=== PATIENT | male | born 1940 | race Caucasian/White ===

== ENCOUNTER 2017-11-07 11:03 | Inpatient (IN) | payer OTHER ==
--- NOTE | 2017-11-07 12:18 | DI ---
EXAM: Chest one view, frontal view only. HISTORY: Chest pain. COMPARISON: 12/22/2015. FINDINGS: Post CABG changes noted. Aortic atherosclerotic calcifications are present The heart size is normal. There is no pulmonary vascular congestion. The lungs are clear. No pleural effusion or pneumothorax is seen. No acute osseous abnormality is identified. Old right rib fractures seen. S grzegorz the prior study, there has been no significant interval change. IMPRESSION: No acute cardiopulmonary process.
--- NOTE | 2017-11-07 13:00 | ED.PDOC ---
General ED Provider: Dr. ALVARO SINGH Chief Complaint: Syncope Stated Complaint: syncope Time Seen by Physician: 11:10 Mode of Arrival: Walk-In Information Source: Patient Exam Limitations: No limitations Primary Care Provider: KEESHA REAL Nursing and Triage Documentation Reviewed and Agree: Yes Does patient meet sepsis criteria?: Yes If yes, has appropriate treatment been initiated?: No System Inflammatory Response Syndrome: Not Applicable Sepsis Protocol: For patient's 13 years and over: Temp is 96.8 and below OR 101 and greater Pulse >90 BPM Resp >20/minute Acutely Altered Mental Status Are patient's symptoms suggestive of a new infection, such as: -Pneumonia -Skin, Soft Tissue -Endocarditis -UTI -Bone, Joint Infection -Implantable Device -Acute Abdominal Infection -Wound Infection -Meningitis -Blood Stream Catheter Infection -Unknown Neurological Complaint Exam - Syncope/Near Syncope Complaint/Exam Onset/Duration: today and last week Symptoms Are: Resolved Episodes Lasting: Seconds Number of Episodes: 1 Frequency of Episodes: 1 Episodes Witnessed: Yes Loss of Consciousness: No Associated Head Trauma: No Activity at Onset: At rest Aggravating: None Alleviating: Reports: Spontaneous resolution Associated Signs and Symptoms: Denies: Pain, Decreased oral intake, Vomiting, Diarrhea, GI blood loss, Short of air, Chest pain, Palpitations, Diaphoresis, Lightheadedness, Dizziness, Weakness, AMS, Numbness, Headache, Seizure, Remote head trauma, Recent head trauma Related History: Similar episode GI Bleed Risk Factors: Reports: None Dysrhythmia Risk Factors: Reports: >45 years old Related Surgical History: Reports: None JVD Present: No Carotid Bruit Present: No Rectal Heme Positive: No Glascow Coma Scale (see protocol): 15 Nystagmus Present: No Gag Reflex Present: Yes Meningeal Signs Positive: No Focal Weakness: Present: None Focal Sensory Loss: Present: None Gait: Normal [id number]: Normal Findings Romberg Test Positive: No Babinski Sign: Negative Right, Negative Left Heel to Toe Normal: No Differential Diagnoses: CAD, Dysrhythmia, Hypoglycemia, Hypovolemia, Metabolic Reaction, Medication Reaction, Vasovagal Episode Quality Indicators for Cardiac Chest Pain: EKG in 10min. Quality Indicator For Non-Traumatic Chest Pain/Syncope: EKG Performed Quality Indicators for AMI: EKG in 10min. Review of Systems - Review Of Systems Constitutional: Reports: No symptoms Eyes: Reports: No symptoms Ears, Nose, Mouth, Throat: Reports: No symptoms Respiratory: Reports: No symptoms Cardiac: Reports: Syncope GI: Reports: No symptoms : Reports: No symptoms Musculoskeletal: Reports: No symptoms Skin: Reports: No symptoms Neurological: Reports: No symptoms Endocrine: Reports: No symptoms Hematologic/Lymphatic: Reports: No symptoms All Other Systems: Reviewed and Negative Past Medical History - Past Medical History Previously Healthy: Yes Endocrine: Reports: Dyslipidemia Cardiovascular: Reports: Hypertension Respiratory: Reports: None Hematological: Reports: None Gastrointestinal: Reports: None Genitourinary: Reports: None Neuro/Psych: Reports: None Musculoskeletal: Reports: None Cancer: Reports: None - Surgical History General Surgical History: Reports: None - Family History Family History: Reports: None - Social History Smoking Status: Current some day smoker, Light tobacco smoker Hx Substance Use: No Alcohol Screening: Occasionally Physical Exam - Physical Exam Appearance: Well-appearing, No pain distress, Well-nourished Eyes: SHON, EOMI, Conjunctiva clear ENT: Ears normal, Nose normal, Oropharynx normal Respiratory: Airway patent, Breath sounds clear, Breath sounds equal, Respirations nonlabored Cardiovascular: RRR, Pulses normal, No rub, No murmur GI/: Soft, Nontender, No masses, Bowel sounds normal, No Organomegaly Musculoskeletal: Normal strength, ROM intact, No edema, No calf tenderness Skin: Warm, Dry, Normal color Neurological: Sensation intact, Motor intact, Reflexes intact, Cranial nerves intact, Alert, Oriented Psychiatric: Affect appropriate, Mood appropriate Interpretation - Radiology Interpretation Radiology Interpretation By: Radiologist Radiology Results: No acute changes - 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 Rate: Salvatore Rhythm: Sinus - EKG Interpretation Rate: Salvatore Rhythm: Sinus Re-Evaluation - Re-Evaluation Time of Re-Evaluation: 12:00 Status: Improved Vital Signs Stable: Yes Pain Level: 0 Appearance: NAD Lungs: Clear Skin: Warm and Dry Neuro: Alert and Oriented X3 CV: RRR - Re-Evaluation Time of Re-Evaluation: 13:00 Status: Improved Vital Signs Stable: Yes Pain Level: 0 Appearance: NAD Skin: Warm and Dry Neuro: Alert and Oriented X3 CV: RRR Physician Notification - Case Discussed Physician Notified: pmd Time of Notification: 13:01 Admit To: Inpatient Critical Care Note - Critical Care Note Total Time (mins): 0 Course - Course Hematology/Chemistry: 11/07/17 11:30 11/07/17 11:30 Orders, Labs, Meds: Lab Review 11/07/17 11/07/17 11/07/17 11:30 11:30 11:30 WBC 5.69 RBC 4.79 Hgb 15.5 Hct 45.3 MCV 94.6 H MCH 32.4 H MCHC 34.2 RDW Coeff of Seymour 13.0 Plt Count 178 Immature Gran % (Auto) 0.2 Neut % (Auto) 63.1 Lymph % (Auto) 23.0 Sandoval % (Auto) 10.4 H Eos % (Auto) 2.6 Baso % (Auto) 0.7 Immature Gran # (Auto) 0.0 Neut # (Auto) 3.6 Lymph # (Auto) 1.3 Sandoval # (Auto) 0.6 Eos # (Auto) 0.2 Baso # (Auto) 0.0 PT 10.1 INR 1.01 APTT 23.7 L Sodium 138 Potassium 3.9 Chloride 105 Carbon Dioxide 25 Anion Gap 11.9 BUN 9 Creatinine 0.87 Estimated GFR (MDRD) 85.00 BUN/Creatinine Ratio 10.34 Glucose 99 Calcium 8.7 Total Bilirubin 1.3 H AST 16 ALT 12 Alkaline Phosphatase 74 Total Creatine Kinase 72 Troponin I < 0.0100 Total Protein 6.3 Albumin 3.4 Globulin 2.9 Albumin/Globulin Ratio 1.17 Orders Category Date Time Status ECHOCARDIOGRAM COLOR FLOW-(ED) Stat CARDIO 11/07/17 12:50 Ordered EKG-(ED ONLY) Stat CARDIO 11/07/17 11:25 Completed NPO REMINDER: IMAGING ONCE CARE 11/07/17 12:49 Active NPO REMINDER: IMAGING ONCE CARE 11/07/17 12:56 Ordered Neuro Check [NEUROLOGICAL CHECKS] Q4HR CARE 11/07/17 12:50 Active ED IV/MEDIPORT/POWERPORT .ONCE EMERGENCY 11/07/17 11:25 Active CBC W/ AUTO DIFF Stat LAB 11/07/17 11:30 Completed COMPREHENSIVE METABOLIC PANEL Stat LAB 11/07/17 11:30 Completed CREATINE KINASE Stat LAB 11/07/17 11:30 Completed FREE T4 (FREE THYROXINE) Stat LAB 11/07/17 12:49 Ordered PARTIAL THROMBOPLASTIN TIME Stat LAB 11/07/17 11:30 Completed PT WITH INR Stat LAB 11/07/17 11:30 Completed THYROID STIMULATING HORMONE Stat LAB 11/07/17 12:49 Ordered TROPONIN I Stat LAB 11/07/17 11:30 Completed 0.9 % Sodium Chloride [Saline Flush] MEDS 11/07/17 11:24 Active 1 syr IVF PRN PRN Amlodipine Besylate [Norvasc] MEDS 11/08/17 09:00 Ordered 5 mg PO DAILY Clopidogrel Bisulfate [Plavix] MEDS 11/08/17 09:00 Ordered 75 mg PO DAILY Lisinopril [Lisinopril] MEDS 11/07/17 21:00 Ordered 20 mg PO BID Metoprolol Succinate [Toprol Xl] MEDS 11/08/17 09:00 Ordered 50 mg PO DAILY Montelukast Sodium [Singulair] MEDS 11/08/17 09:00 Ordered 10 mg PO DAILY Pravastatin Sodium [Pravachol] MEDS 11/08/17 09:00 Ordered 40 mg PO DAILY CHEST, 1V AP ONLY Stat RADS 11/07/17 11:[address] HEAD W/CONTRAST Stat RADS 11/07/17 12:[address] HEAD W/WO CONTRAST Stat RADS 11/07/17 12:56 Ordered ULTRASOUND DOPPLER CAROTID [U/S DOPPLER CAROTID] Stat RADS 11/07/17 12:49 Ordered Medications Generic Name Dose Route Start Last Admin Trade Name Freq PRN Reason Stop Dose Admin Amlodipine Besylate 5 mg 11/08/17 09:00 Norvasc PO DAILY MARY BETH Clopidogrel Bisulfate 75 mg 11/08/17 09:00 Plavix PO DAILY MARY BETH Metoprolol Succinate 50 mg 11/08/17 09:00 Toprol Xl PO DAILY MARY BETH Montelukast Sodium 10 mg 11/08/17 09:00 Singulair PO DAILY MARY BETH Non-Formulary Medication 20 mg 11/07/17 21:00 Lisinopril [Lisinopril] PO BID MARY BETH Pravastatin Sodium 40 mg 11/08/17 09:00 Pravachol PO DAILY MARY BETH Sodium Chloride 1 syr 11/07/17 11:24 Saline Flush IVF PRN PRN To flush IV Vital Signs: Temp Pulse Resp BP Pulse Ox 11/07/17 11:06 97.4 F L 65 12 185/79 H 95 Departure - Departure Time of Disposition: 13:01 Disposition: HOME SELF-CARE Discharge Problem: Syncope Instructions: Syncope (ED) Condition: Good Pt referred to PMD for follow-up: Yes IPMP verified?: No Additional Instructions: Please call your Family Physician as soon as possible to schedule a follow-up appointment. Allergies/Adverse Reactions: Allergies No Known Allergies Allergy (Unverified 11/07/17 11:05) Home Medications: Ambulatory Orders Amlodipine Besylate 5 mg PO DAILY 11/07/17 Clopidogrel Bisulfate [Clopidogrel] 75 mg PO DAILY 11/07/17 Lisinopril 20 mg PO BID 11/07/17 Metoprolol Succinate [Toprol Xl] 50 mg PO DAILY 11/07/17 Montelukast Sodium 10 mg PO DAILY 11/07/17 Pravastatin Sodium [Pravachol] 40 mg PO DAILY 11/07/17 Disposition Discussed With: Patient
--- NOTE | 2017-11-07 13:51 | CT ---
EXAM: CT head with and without contrast HISTORY: Syncope COMPARISON: None TECHNIQUE: CT head performed with and without contrast FINDINGS: There is no mass effect, midline shift, or intracranial hemmorhage. Dougherty white differenti ation is preserved. There is no extra-axial collection. The ventricles, sulci, and basal cisterns a re patent and symmetric. There is chronic ischemic disease of the white matter and cerebral volume l oss. There is no depressed calvarial fracture. The mastoid air cells are clear. The visualized para nasal sinuses are clear. There are intracranial atherosclerotic calcifications. No abnormal area of enhancement. IMPRESSION: 1. No acute intracranial abnormality. No abnormal area of enhancement. 2. Chronic ischemic disease of the white matter and cerebral volume loss.
--- NOTE | 2017-11-07 14:18 | US ---
EXAM: Carotid ultrasound HISTORY: Syncope COMPARISON: None TECHNIQUE: Carotid ultrasound was performed using ortega scale, color, and Doppler imaging was perform ed. FINDINGS: Right carotid: There is atherosclerotic plaque in the bulb/internal carotid artery with visual estim ate of narrowing greater than 50%. Peak systolic velocity measurement in the right internal carotid artery is 1.2 meters per second. End-diastolic velocity measurement in the right internal carotid ar an is 0.2 meters per second. Right internal to common carotid artery peak systolic velocity ratio is 1.8. Flow in the right vertebral artery is antegrade. Left carotid: There is atherosclerotic plaque in the bulb/internal carotid artery with visual estima te of narrowing greater than 50%. Peak systolic velocity measurement in the left internal carotid ar an is 0.8 meters per second. End-diastolic velocity measurement in the left internal carotid arter y is 0.2 meters per second. Left internal to common carotid artery peak systolic velocity ratio david ures 1.2. Left vertebral artery not visualized. IMPRESSION: 1. Right internal carotid: Indeterminate degree of stenosis. Peak systolic velocity corresponds with mild (less than 50%) stenosis; however, visual estimate of narrowing is greater than 50% and may be moderate or severe 2. Left internal carotid: Indeterminate degree of stenosis. Peak systolic velocity corresponds with mild (less than 50%) stenosis; however, visual estimate of narrowing is greater than 50% and may be m oderate or severe 3. Antegrade flow right vertebral artery. Left vertebral artery not visualized. 4. Findings can be correlate with CT angiography neck
[2017-11-07] MEDS ORDERED: VASOTEC IV IVP PRN (14:30)
[2017-11-07] MEDS ORDERED: VASOTEC IV IVP STA (14:30)
[2017-11-07] MEDS ORDERED: ASPIRIN CHEWABLE PO STA (14:35)
[2017-11-07 15:22] VITALS: BMI 26.5
[2017-11-07] MEDS: ZESTRIL PO SCH (20:19)
[2017-11-07] MEDS ORDERED: NON-FORMULARY MEDICATION (Lisinopril [Lisinopril] 20 MG) PO SCH (21:00)
[2017-11-08] MEDS ORDERED: TOPROL XL PO SCH (08:00)
[2017-11-08] MEDS: ASPIRIN CHEWABLE PO SCH (08:26)
[2017-11-08] MEDS: BYSTOLIC PO SCH (08:26)
[2017-11-08] MEDS: PRAVACHOL PO SCH (08:27)
[2017-11-08] MEDS: ZESTRIL PO SCH ×2 (08:27→20:15)
[2017-11-08] MEDS: NORVASC PO SCH (08:27)
[2017-11-08] MEDS: SINGULAIR PO SCH (08:27)
[2017-11-08] MEDS ORDERED: PLAVIX PO SCH (09:00)
--- NOTE | 2017-11-08 09:03 | PN ---
DATE OF SERVICE: 11/07/17 SUBJECTIVE: 77-year-old white male hospitalized with history of passing out. The patient had recent episode while sitting and he didn't know what happened. The was by his side. Suddenly after that he woke up. The patient denies having any vomiting. No seizure type of activity was noted by the patient's . The patient says that he felt dizzy, light-headed before then. The patient has similar type of spells for the past 4 to 6 months, happens once a month, has never hurt himself or fallen. The patient denies any exertional chest discomfort. No PND, no orthopnea or palpitations. PHYSICAL EXAMINATION: HEENT: Head normocephalic, atraumatic. Eyes: Extraocular muscles are intact. Pupils are equal, round and reactive to light and accommodation. Ears: No lesions. Nose appeared normal. Throat: No exudate or erythema. NECK: Supple. No JVD, no carotid bruit. No lymphadenopathy or thyromegaly. LUNGS: Decreased breath sounds but clear. Clear to auscultation. Percussion note normal. Chest symmetrical. HEART: S1, S2, no S3. No murmurs. No cyanosis or clubbing. No ascites. Pulses: Dorsalis pedis and posterior tibial pulses +1 to +2 both sides. ABDOMEN: Soft. Nontender. Bowel sounds active. No CVA tenderness. No mass felt. EXTREMITIES: No edema. Full range of motion of all extremities, equal. NEUROLOGIC: Deep tendon reflexes normal. No focal deficit. Cranial nerves II through XII are grossly intact. No headache, no double vision or headache. SKIN: Not dry. Intact. Turgor - normal. LYMPHATIC: No palpable lymph nodes/no lymphedema. MUSCULOSKELETAL: Normal joints with no swelling. Muscle tone is normal. LABS: Normal. CT scan showed volume loss with small vessel disease. Carotid scan showed right carotid artery maybe 50 to 70%, left less than 50. Will do CT angiogram. ASSESSMENT: 1. SYNCOPAL EPISODE, ETIOLOGY UNKNOWN 2. HEAVY SMOKING WITH COPD 3. DYSLIPIDEMIA 4. HYPERTENSION, WHICH SEEMS TO BE OUT OF CONTROL PLAN: 1. Telemetry 2. Carotid scan already done 3. CT scan of the head already done 4. Start coated aspirin 5. Will give IV Vasotec 1.25 mg q.8 for BP systolic more than 160 6. Will do echocardiogram 7. Counseling for smoking done 8. ASHD discussed with the patient 9. Will discontinue Metoprolol and put patient on Bystolic 5 mg daily which doesn't have much bradycardia type of effect. The patient's heart rate is in the 40s. Will try to correct that. Will watch him for pauses. CONDITION: Stable. TIME SPENT: More than 30 minutes. Plan and coordination of the patient's care discussed in the presence of nurse. JALEN
--- NOTE | 2017-11-08 16:46 | CT ---
EXAM: CTA of the neck was performed with contrast TECHNIQUE: Helical axial CTA of the neck was performed with contrast with multiplanar reconstruction s and separate work station 3-D renderings. COMPARISON: Carotid duplex from 1 day earlier and head CT from 1 day earlier HISTORY: Concern for carotid stenosis with history of syncope FINDINGS: There is no acute soft tissue abnormality. There are no neck masses or pathologic lymph nod es. The thyroid gland is unremarkable. There is advanced emphysematous change in the lung apices. The re are no acute osseous abnormalities. There is moderate degenerative change in the cervical spine. Aorta: There is advanced calcific atherosclerosis of the aorta with no evidence for dissection or an eurysm. The bilateral subclavian arteries and brachial cephalic artery are widely patent. Right carotid artery: There is moderate calcific atherosclerosis of the proximal right common caroti d artery which does not appear to be hemodynamically significant. There is advanced calcific atheros clerosis at the bifurcation.. This results in about 50% luminal diameter narrowing of the proximal r ight internal carotid artery. Carotid artery in the neck more distally is widely patent. There is a small focus of calcific atherosclerosis seen just below the skull base. Right vertebral artery: There is mild to moderate calcific atherosclerosis at the origin of the righ t vertebral artery. The course of the right vertebral artery in the neck is normal with no focal sten osis or dissection or aneurysm. Left carotid artery: The origin of the left common carotid artery off of the aortic arch is widely p atent. There is non stenotic calcific atherosclerosis of the proximal left common carotid artery. Th ere is advanced calcific atherosclerosis seen involving the left carotid bifurcation. This results i n about 30-40% luminal diameter narrowing of the left internal carotid artery proximally. More dista lly the left internal carotid artery is widely patent. Left vertebral artery: The origin of the left vertebral artery off of the left subclavian artery is widely patent. The course of the left vertebral artery in the neck is unremarkable with no focal kaleb nosis or aneurysm or dissection. The left vertebral artery is very diminutive congenitally. Visualized intracranial circulation: There are bilateral large posterior communicating arteries whic h result in a very small vertebral basilar system. Middle cerebral and anterior cerebral arteries an d the vertebral basilar system appear to be widely patent. No aneurysms are identified. There is mod erate calcific atherosclerosis of the bilateral carotid siphons a bit more on the left. IMPRESSION: 1. Extensive calcific atherosclerosis of the bilateral carotid bifurcations as described resulting i n about 50% luminal diameter narrowing of the right internal carotid artery proximally and 30 40% lum inal diameter narrowing on the left. 2. Widely patent bilateral vertebral arteries with exception of some mild to moderate narrowing of t he origin of the right vertebral artery due to calcific atherosclerosis. 3. Diminutive vertebral basilar system as above which is a risk factor for vertebral basilar insuffi ciency. 4. Other atherosclerotic findings as described. 5. Emphysema.
[2017-11-09] MEDS: NORVASC PO SCH (08:34)
[2017-11-09] MEDS: PRAVACHOL PO SCH (08:34)
[2017-11-09] MEDS: SINGULAIR PO SCH (08:34)
[2017-11-09] MEDS: BYSTOLIC PO SCH (08:34)
[2017-11-09] MEDS: ASPIRIN CHEWABLE PO SCH (08:34)
[2017-11-09] MEDS: ZESTRIL PO SCH (08:34)
--- NOTE | 2017-11-09 08:46 | HP ---
DATE OF SERVICE: 11/08/17 REASON FOR HOSPITALIZATION/HISTORY OF PRESENT ILLNESS: 77 year old male who was brought in his family members after an episode of syncope. He stated that it lasted for a few seconds and then resolved. He stated that he had an episode last week and he denies any vomiting, diarrhea, dizziness. PAST MEDICAL HISTORY: COPD Coronary artery disease Hypertension History of bladder cancer GERD Dyslipidemia Osteoarthritis Severe left hip OA PAST SURGICAL HISTORY: CABG in 1997 REVIEW OF SYSTEMS: CONSTITUTIONAL: No night sweats. No fatigue, malaise, lethargy. No fever or chills. HEENT: Eyes: No visual changes. No eye pain. No eye discharge. ENT: No runny nose. No epistaxis. No sinus pain. No sore throat. No odynophagia. No ear pain. No congestion. RESPIRATORY: No cough, no congestion. No hemoptysis. No shortness of breath. CARDIOVASCULAR: No angina symptoms. No CHF symptoms. No atypical chest pain for CAD. No palpitations. No PND. No orthopnea. GASTROINTESTINAL: No abdominal pain. No nausea or vomiting. No diarrhea or constipation. No hematemesis. No hematochezia. GENITOURINARY: No urgency. No frequency. No dysuria. No hematuria. No obstructive symptoms. No discharge. No pain. No significant abnormal bleeding. MUSCULOSKELETAL: No musculoskeletal pain. No joint swelling. No arthritis. NEUROLOGICAL: No headache. No neck pain. Syncope. No seizures. No dizziness. PSYCHIATRIC: Not anxious. No depression. No suicidal thoughts. No homicidal thoughts. SKIN: No rash. No lesions. No wounds. ENDOCRINE: No unexplained weight loss. No weight gain. HEMATOLOGIC/LYMPHATIC: No anemia. No purpura. No petechiae. No prolonged or excessive bleeding. No palpable lymph nodes. PERSONAL/FAMILY/SOCIAL HISTORY: The patient is a daily smoker, no alcohol or illicit drug use. He is . MEDICATIONS: Montelukast sodium 10mg PO 1700 Toprol XL 50mg PO daily Lisinopril 20mg PO twice a day Amlodipine 5mg PO daily Pravachol 40mg PO 1700 ALLERGIES: No known allergies PHYSICAL EXAMINATION: VITAL SIGNS: Temperature 97.4, heart rate 60, respiratory 18, blood pressure 140/65 and pulse ox 97%. GENERAL: The patient is alert and oriented times three. HEENT: Head normocephalic, atraumatic. Eyes: Extraocular muscles are intact. Pupils are equal, round and reactive to light and accommodation. Ears: No lesions. Nose appeared normal. Throat: No exudate or erythema. NECK: Supple. No JVD, no carotid bruit. No lymphadenopathy or thyromegaly. LUNGS: Clear to auscultation. Percussion note normal. Chest symmetrical. HEART: S1, S2, no S3. No murmurs. No cyanosis or clubbing. No ascites. Pulses: Dorsalis pedis and posterior tibial pulses +1 to +2 bilaterally. ABDOMEN: Soft. Nontender. Bowel sounds active. No CVA tenderness. No mass felt. EXTREMITIES: No edema. Full range of motion of all extremities, equal. NEUROLOGIC: No focal deficit. Cranial nerves II through XII are grossly intact. No headache, no double vision or headache. SKIN: Not dry. Intact. Turgor - normal. LYMPHATIC: No palpable lymph nodes/no lymphedema. MUSCULOSKELETAL: Normal joints with no swelling. Muscle tone is normal. LABS: WBC 5.69, hgb 15.5, hct 45.3, plt count 178, sodium 138, potassium 3.9, BUN 9, creatinine 0.87, glucose 99, PT 10, INR 1.07, AST 12, ALT 74, Troponin less than 0.01, total CK 72, total protein 16.3. CT of the head without showed chronic ischemic disease of the white matter cerebral volume loss however no acute abnormalities. Chest x-ray shows no acute cardio pulmonary process. TSH 1.125, Free T4 1.06, Carotid ultrasound showed narrowing greater than 50% of the right carotid, left carotid is greater than 50%. ASSESSMENT: 1. Syncopal episode 2. Hypertension 3. Coronary artery disease 4. History of HI 5. Smoker PLAN: 1. We will admit 2. Routine telemetry orders 3. CBC and CMP daily 4. CTA of the head and neck today 11/08/17 5. Continue all home medications 6. We will order an echo 7. Neurochecks Q 4 hours Will follow him closely TIME SPENT: More than 70 minutes. [facility]LAND[facility]
[2017-11-09 09:51] VITALS: BP 127/64; TEMP 97.6
--- NOTE | 2017-11-09 10:59 | ECHO2D ---
Date of Exam: 11/08/17 Ordering Physician: DR. KEESHA REAL Room #: 110 Reason for Echo: SYNCOPE M-Mode Normal Adult Results LV Dimensions Normal Adult Results AoV Opening excursions >1.6 >1.6 LVEDD-base- 3.5-5.8 5.4 Ao root dimensions 2.0-3.7 3.6 LVESD-base- 3.1-4.6 L. Atrium dimensions 1.9-3.8 4.9 Post. Wall thickness 0.8-1.1 1.4 IV septum (thickness) 0.7-1.2 1.1 Post. Wall excursion 0.72-1.3 NORMAL Septal motion 0.4 Systolic motion R. Ventricular cavity 1.5-2.0 NORMAL LVEF 60% 48% Paradoxical septal wall motion NORMAL 2-D : SEPTUM THINNED OUT WITH SOME PART SHOWING SYSTOLIC THICKENING--NORMAL VALVES, ENLARGED LEFT ATRIAL CAVITY--NO THROMBUS, NO EFFUSION M-MODE: MV: NORMAL AV: NORMAL TV: NORMAL PV: CHAMBER SIZE: ENLARGED LEFT ATRIAL CAVITY WALL MOTION: HYPOKINETIC SEPTUM PERICARDIUM: NORMAL INTERPRETATION: 1. HYPOKINETIC SEPTUM WITH EJECTION FRACTION 48% 2. LEFT VENTRICULAR HYPERTROPHY 3. NORMAL VALVES MTDD
--- NOTE | 2017-11-09 12:06 | CM.DICTOOL ---
ADMISSION: 11/07/17 13:05 DISCHARGE: NOVEMBER 09, 2017 DATE OF SERVICE: 11/09/17 FINAL DIAGNOSIS SYNCOPE HYPERTENSION HISTORY OF ID CAD COPD DYSLIPIDEMIA OSTEOARTHRITIS BLADDER CANCER SMOKER CABG, 4 VESSEL CATARACT SURGERY LAST VITALS Temp Pulse Resp BP Pulse Ox 98.0 F 51 L 18 135/72 97 11/09/17 05:39 11/09/17 05:39 11/09/17 05:39 11/09/17 05:39 11/09/17 05:39 TAKE THESE MEDICATIONS AT HOME Amlodipine Besylate (Norvasc) 5 mg PO DAILY [facility] Last Admin: 11/09/17 08:34 Dose: 5 mg Aspirin (Aspirin Chewable) 81 mg PO DAILYWM [facility] Last Admin: 11/09/17 08:34 Dose: 81 mg Lisinopril (Zestril) 20 mg PO BID [facility] Last Admin: 11/09/17 08:34 Dose: 20 mg Montelukast Sodium (Singulair) 10 mg PO DAILY [facility] Last Admin: 11/09/17 08:34 Dose: 10 mg Nebivolol (Bystolic) 5 mg PO DAILY [facility] Last Admin: 11/09/17 08:34 Dose: 5 mg Pravastatin Sodium (Pravachol) 40 mg PO DAILY [facility] Last Admin: 11/09/17 08:34 Dose: 40 mg ALLERGIES No Known Allergies Allergy (Unverified 11/07/17 11:05) DISCONTINUED MEDICATIONS METOPROLOL SUCCINATE (TOPROL XL) NEW PRESCRIPTIONS: BYSTOLIC 5 MG DAILY SMOKING: SMOKING DISCOURAGED DISEASE SPECIFIC EDUCATION: SYNCOPE HYPERTENSION MEDICATION CHANGE LAB REVIEW: 11/09/17 04:45 11/09/17 04:45 11/09/17 04:45: Sodium 141, Potassium 4.4, Chloride 103, Carbon Dioxide 31, Anion Gap 11.4, BUN 9, Creatinine 0.93, Estimated GFR (MDRD) 78.00, BUN/ Creatinine Ratio 9.67, Glucose 91, Calcium 8.9, Total Bilirubin 0.6, AST 14 L, ALT 10 L, Alkaline Phosphatase 64, Total Protein 6.0, Albumin 3.0 L, Globulin 3.0, Albumin/Globulin Ratio 1.00 11/09/17 04:45: WBC 6.76, RBC 4.71, Hgb 15.1, Hct 45.6, MCV 96.8 H, MCH 32.1 H, MCHC 33.1, RDW Coeff of Seymour 13.0, Plt Count 189, Immature Gran % (Auto) 0.1, Neut % (Auto) 54.7, Lymph % (Auto) 28.4, [place] % (Auto) 10.9 H, Eos % (Auto) 5.2 , Baso % (Auto) 0.7, Immature Gran # (Auto) 0.0, Neut # (Auto) 3.7, Lymph # ( Auto) 1.9, [place] # (Auto) 0.7, Eos # (Auto) 0.4, Baso # (Auto) 0.1 PLAN: DISCHARGE HOME DIET: REGULAR TOLERATED ACTIVITY: RESUME TOLERATED AVOID OUTDOOR ACTIVITY IN EXTREME HEAT AND HUMIDITY. STAY HYDRATED WHEN OUTDOORS AN APPOINTMENT IS SCHEDULED WITH DR. REAL/DIANNE SALMON APRN ON NOVEMBER 16, 2017 AT 8:15 AM MR. NARANJO HAS INDICATED HE IS A DO NOT INTUBATE, BUT WANTS CPR ONLY MR. NARANJO IS ALERT AND ORIENTED X 3. HE IS INDEPENDENT WITH ACTIVITIES OF DAILY LIVING. HE IS AMBULATORY WITHOUT INCIDENT OR STAFF ASSISTANCE. HE DOES NOT USE ANY ASSISTIVE DEVICE WITH AMBULATION. HE IS EATING 100% OF ALL MEALS WITHOUT DIFFICULTY. SKIN IS INTACT AND FREE OF DECUBITUS ULCERS OR IRRITATION. KEESHA REAL MD DIANNE SALMON APRN
--- NOTE | 2017-11-09 12:44 | PN ---
DATE OF SERVICE: 11/08/17 SUBJECTIVE: The patient was seen and examined today. He had an echo this morning which showed hypokinetic septum with scarred septum. Ejection fraction 40%. No evidence of thrombus or thrombi. The patient is being worked up for syncopal episode which usually feels like it is coming. Bradycardia was noted yesterday prior to hospitalization in the emergency room. Now the pulse is 60. Metoprolol has been discontinued and he is going to be on Bystolic. CT angiogram is pending. REVIEW OF SYSTEMS: CONSTITUTIONAL: No night sweats. No fatigue, malaise, lethargy. No fever or chills. HEENT: Eyes: No visual changes. No eye pain. No eye discharge. ENT: No runny nose. No epistaxis. No sinus pain. No sore throat. No odynophagia. No congestion. RESPIRATORY: No cough, no congestion. No hemoptysis. No shortness of breath. CARDIOVASCULAR: No angina symptoms. No CHF symptoms. No atypical chest pain for CAD. No palpitations. No orthopnea. GASTROINTESTINAL: No abdominal pain. No nausea or vomiting. No diarrhea or constipation. No hematemesis. No hematochezia. GENITOURINARY: No urgency. No frequency. No dysuria. No hematuria. No obstructive symptoms. No discharge. No pain. No significant abnormal bleeding. MUSCULOSKELETAL: No musculoskeletal pain; no joint swelling. NEUROLOGICAL: No headache. No neck pain. No syncope. No seizures. No dizziness. PSYCHIATRIC: Not anxious. No depression. No suicidal thoughts. No homicidal thoughts. SKIN: No rash. No lesions. No wounds. ENDOCRINE: No unexplained weight loss. No weight gain. HEMATOLOGIC/LYMPHATIC: No anemia. No purpura. No petechiae. No prolonged or excessive bleeding. No palpable lymph nodes. PHYSICAL EXAMINATION: GENERAL: The patient is oriented to time, place and person. VITAL SIGNS: Temperature 97.4, pulse 60, respiratory rate 18, BP 140/60, pulse ox 97%. HEENT: Head normocephalic, atraumatic. Eyes: Extraocular muscles are intact. Pupils are equal, round and reactive to light and accommodation. Ears: No lesions. Nose appeared normal. Throat: No exudate or erythema. NECK: Supple. No JVD, no carotid bruit. No lymphadenopathy or thyromegaly. LUNGS: Decreased breath sounds but clear to auscultation. Percussion note normal. Chest symmetrical. HEART: S1, S2, no S3. No murmurs. No cyanosis or clubbing. No ascites. Pulses: Dorsalis pedis and posterior tibial pulses +1 to +2 both sides. ABDOMEN: Soft. Nontender. Bowel sounds active. No CVA tenderness. No mass felt. EXTREMITIES: No edema. Full range of motion of all extremities, equal. NEUROLOGIC: No focal deficit. Cranial nerves II through XII are grossly intact. No headache, no double vision or headache. SKIN: Not dry. Intact. Turgor - normal. LYMPHATIC: No palpable lymph nodes/no lymphedema. MUSCULOSKELETAL: Normal joints with no swelling. Muscle tone is normal. LABS: Hemoglobin 14.9, hematocrit 44, WBC 6,000, normal differential. Creatinine 0.8, BUN 9, potassium 3.9. ASSESSMENT: 1. SYNCOPE, ETIOLOGY UNKNOWN 2. SEVERE ATHEROSCLEROSIS. ARRHYTMIAS CANNOT BE RULED OUT, THAT IS BRADYARRHYTHMIA. PLAN: 1. The patient is being worked up awaiting CT angiogram of the neck. 2. The patient has continued to smoke, strongly advised to quit smoking. 3. ASHD discussed with him. 4. The patient's syncope could be postural hypotension. 5. Advised not to drive for at least 4 to 6 weeks. Echo - no thrombus or thrombi. Hypokinetic septum. Telemetry - no remarkable arrhythmias with pauses of no more than 2 seconds. Will do Holter. The patient may need stress echo. The patient clearly indicated that he is not going to have a stress test done during this hospital stay, may do as an outpatient. CONDITION: Stable TIME SPENT: More than 30 minutes. Plan and coordination of the patient's care discussed in the presence of nurse. JALEN
--- NOTE | 2017-11-09 14:52 | DS ---
DATE OF SERVICE: 11/09/17 FINAL DIAGNOSIS: 1. SYNCOPE 2. HYPERTENSION 3. HISTORY OF ND 4. CAD 5. COPD 6. DYSLIPIDEMIA 7. OSTEOARTHRITIS 8. BLADDER CANCER 9. SMOKER 10. CABG, 4 VESSEL 11. CATARACT SURGERY DISCHARGE INSTRUCTIONS: Followup appointment with Dr. Phoenix/Delia Ledbetter APRN on 11/16/17 at 8:15 a.m. MEDICATIONS AT DISCHARGE: Amlodipine 5 mg p.o. daily [facility] Aspirin 81 mg p.o.daily with meal MARY BETH Lisinopril 20 mg p.o.b.i.d. MARY BETH Singulair 10 mg p.o. daily [facility] Bystolic 5 mg p.o. daily [facility] Pravachol 40 mg p.o. daily [facility] DISCONTINUED MEDICATIONS: Metoprolol (Toprol XL) NEW PRESCRIPTIONS: Bystolic 5 mg daily DIET INSTRUCTIONS: Regular as tolerated. ACTIVITY: Resume as tolerated. Avoid outdoor activity in the extreme heat and humidity. Stay hydrated when outdoors. SMOKING: Smoking discouraged. DISEASE SPECIFIC EDUCATION: Syncope Hypertension Medication change HOSPITAL COURSE: This is a 77-year-old male who was hospitalized with near syncopal episode. The patient had weakness, syncopal episode by his . No seizure activity was noted. He felt lightheaded before then, was sitting and when he came around within a few seconds, was still light-headed. No headache, no double vision. The patient says he has these type of spells off and on, a couple of times a year for the past several years. The patient's telemetry showed maritza arrhythmias 45/min times the range of 45 to 75. The patient was taken off Metoprolol and put on Bystolic. His rate has improved and now the median rate is from 50 to 60/min. Blood pressure had never fallen with bradycardia. Carotid scan did not show any hemodynamically significant carotid artery occlusive disease. The patient had CT angiogram of the neck. The patient's echo showed hypokinetic septum with scar tissue with some of the septum not having any systolic thickening. His LV posterior wall was moving good. His ejection fraction was 45 to 50%. The patient is up and about and has no chest discomfort or chest pain. He declined to undergo any stress test or further workup. CT scan was unremarkable except for small vessel disease. He was strongly advised to quit smoking. He is a heavy smoker. The patient has severe calcific atherosclerosis involving practically all his arteries, could be causing postural hypotension. He was advised to drink fluids, advised to quit smoking. Stress echo or stress Thallium declined. Condition at time of discharge stable. TIME SPENT: More than 60 minutes. JALEN
--- NOTE | 2017-11-12 10:07 | PN ---
DATE OF SERVICE: 11/08/17 SUBJECTIVE: The patient was examined by Dr. Phoenix. He has had no syncopal episode since admission. Vital signs and labs have all been normal. Carotid scan did show greater than 50% stenosis bilaterally so he is scheduled for CTA today. He reports no dizziness this morning, has been feeling rather well. REVIEW OF SYSTEMS: CONSTITUTIONAL: No night sweats. No fatigue, malaise, lethargy. No fever or chills. HEENT: Eyes: No visual changes. No eye pain. No eye discharge. ENT: No runny nose. No epistaxis. No sinus pain. No sore throat. No odynophagia. No congestion. RESPIRATORY: No cough, no congestion. No hemoptysis. No shortness of breath. CARDIOVASCULAR: No angina symptoms. No CHF symptoms. No atypical chest pain for CAD. No palpitations. No orthopnea. GASTROINTESTINAL: No abdominal pain. No nausea or vomiting. No diarrhea or constipation. No hematemesis. No hematochezia. GENITOURINARY: No urgency. No frequency. No dysuria. No hematuria. No obstructive symptoms. No discharge. No pain. No significant abnormal bleeding. MUSCULOSKELETAL: No musculoskeletal pain; no joint swelling. NEUROLOGICAL: No headache. No neck pain. No syncope. No seizures. No dizziness. PSYCHIATRIC: Not anxious. No depression. No suicidal thoughts. No homicidal thoughts. SKIN: No rash. No lesions. No wounds. ENDOCRINE: No unexplained weight loss. No weight gain. HEMATOLOGIC/LYMPHATIC: No anemia. No purpura. No petechiae. No prolonged or excessive bleeding. No palpable lymph nodes. PHYSICAL EXAMINATION: VITAL SIGNS: Temperature 97.4, pulse 60, respiratory rate 18, BP 140/65, 02 sat 97. HEENT: Head normocephalic, atraumatic. Eyes: Extraocular muscles are intact. Pupils are equal, round and reactive to light and accommodation. Ears: No lesions. Nose appeared normal. Throat: No exudate or erythema. NECK: Supple. No JVD, no carotid bruit. No lymphadenopathy or thyromegaly. LUNGS: Diminished breath sounds. Clear to auscultation. Percussion note normal. Chest symmetrical. HEART: S1, S2, no S3. No murmurs. No cyanosis or clubbing. No ascites. Pulses: Dorsalis pedis and posterior tibial pulses +1 to +2 both sides. ABDOMEN: Soft. Nontender. Bowel sounds active. No CVA tenderness. No mass felt. EXTREMITIES: No edema. Full range of motion of all extremities, equal. NEUROLOGIC: No focal deficit. Cranial nerves II through XII are grossly intact. No headache, no double vision or headache. SKIN: Not dry. Intact. Turgor - normal. LYMPHATIC: No palpable lymph nodes/no lymphedema. MUSCULOSKELETAL: Normal joints with no swelling. Muscle tone is normal. LABS: Sodium 140, potassium 3.9, BUN 9, creatinine 0.84, hemoglobin 14.9, hematocrit 44.3. ASSESSMENT: 1. SYNCOPAL EPISODE 2. HYPERTENSION 3. DYSLIPIDEMIA PLAN: 1. Will do CTA of head and neck today. 2. Continue home medications. 3. Continue with routine telemetry. 4. We will discontinue his Metoprolol and change him to Bystolic 5 mg daily. TIME SPENT: More than 30 minutes. Plan and coordination of the patient's care discussed in the presence of nurse. JALEN
--- NOTE | 2017-11-12 10:59 | PN ---
CODING FOR BILLING ADMISSION DAY 11/07/17 LEVEL 5 11/08/17 INTERMEDIATE 11/09/17 DISCHARGE [facility]
== END 2017-11-09 10:50 | disposition home or self-care (01) | DRG 303 ==
LOC: ED 11:03 → MEDSURG A 13:05
PROVIDERS: ADMIT Internal Medicine; ATTEND Internal Medicine
DX: I25.10 Atherosclerotic heart disease of native coronary artery without angina pectoris (principal); I10 Essential (primary) hypertension; I25.2 Old myocardial infarction; J44.9 Chronic obstructive pulmonary disease, unspecified; E78.5 Hyperlipidemia, unspecified; M19.90 Unspecified osteoarthritis, unspecified site; Z95.1 Presence of aortocoronary bypass graft; Z72.0 Tobacco use
CPT/HCPCS: 36415; 80053; 80061; 82550; 84439; 84443; 84484; 85025; 85610; 85730; 93005; 93010; 99284

== ENCOUNTER 2020-03-05 09:58 | Observation (INO) ==
[2020-03-05] MEDS ORDERED: ASPIRIN CHEWABLE PO STA (10:13)
--- NOTE | 2020-03-05 10:18 | ED.PDOC ---
General ED Provider: Dr. CHERIE ENGLISH MD Chief Complaint: Chest Pain Mode of Arrival: Walk-In Information Source: Patient Primary Care Provider: KEESHA REAL Sepsis Protocol: For patient's 13 years and over: Temp is 96.8 and below OR 101 and greater Pulse >90 BPM Resp >20/minute Acutely Altered Mental Status Are patient's symptoms suggestive of a new infection, such as: -Pneumonia -Skin, Soft Tissue -Endocarditis -UTI -Bone, Joint Infection -Implantable Device -Acute Abdominal Infection -Wound Infection -Meningitis -Blood Stream Catheter Infection -Unknown PFSH Social History History of recent travel: No Interpretation Product Specialist Time of Product Specialist Interpretation: 10:18 Rate: Salvatore Rhythm: Sinus Ectopy: None EKG Interpretation Time of EKG #1: 10:17 Rate: Salvatore (50) Rhythm: Sinus Ectopy: None [place]: [place] ST Segment: Other (non-specific ST change) Interpretation: No acute changes or ectopy; sinus bradycardia with non-specific ST-T change Course Course Orders, Labs, Meds: Orders Category Date Time Status EKG-(ED ONLY) Stat CARDIO 03/05/20 10:12 Ordered PULSE OXIMETRY Stat CARDIO 03/05/20 10:12 Ordered ED WELLNESS SPECIALIST APPLIED .ONCE EMERGENCY 03/05/20 10:12 Ordered CBC W/ AUTO DIFF Stat LAB 03/05/20 10:12 Ordered COMPREHENSIVE METABOLIC PANEL Stat LAB 03/05/20 10:12 Ordered D-DIMER Stat LAB 03/05/20 Ordered MAGNESIUM Stat LAB 03/05/20 10:12 Ordered PARTIAL THROMBOPLASTIN TIME Stat LAB 03/05/20 10:13 Ordered PT WITH INR Stat LAB 03/05/20 10:13 Ordered TROPONIN I Stat LAB 03/05/20 10:12 Ordered Aspirin [Aspirin Chewable] MEDS 03/05/20 10:13 Stat 324 mg PO ONCE STA CHEST, 2 VIEWS PA & LAT Stat RADS 03/05/20 10:12 Ordered Medications Discontinued Medications Generic Name Dose Route Start Last Admin Trade Name Freq PRN Reason Stop Dose Admin Aspirin 324 mg 03/05/20 10:13 Aspirin 81 Mg Tab.Chew PO 03/05/20 10:14 ONCE STA Vital Signs: Temp Pulse Resp BP Pulse Ox 03/05/20 09:58 96.7 F L 57 L 18 148/63 H 98 ИРИНА Risk Score ИРИНА Risk Score: Risk Score Odds of by 30D 0 0.1 (0.1-0.2) 1 0.3 (0.2-0.3) 2 0.4 (0.3-0.5) 3 0.7 (0.6-0.9) 4 1.2 (1.0-1.5) 5 2.2 (1.9-2.6) 6 3.0 (2.5-3.6) 7 4.8 (3.8-6.1) Discharge Plan Discharge Prescriptions: No Action pravastatin [Pravachol] 40 MG tablet 40 mg PO 1700 RF: 0 lisinopril 20 MG tablet 20 mg PO BID RF: 0 amlodipine 5 MG tablet 5 mg PO DAILY RF: 0 montelukast 10 MG tablet 10 mg PO 1700 RF: 0 Bystolic 5 MG tablet 5 mg PO DAILY Qty: 30 RF: 0 ED Provider: CHERIE ENGLISH Physician Progress Note: []
[2020-03-05 10:31] LABS: BASOPHILS % (AUTO) 0.5 % (0.0-3.0); EOSINOPHILS # (AUTO) 0.4 K/ul (0.0-0.7); EOSINOPHILS % (AUTO) 5.1 % (0.0-7.0); HEMATOCRIT 41.6 % (42.0-52.0); HEMOGLOBIN 14.6 g/dl (14.0-18.0); IMMATURE GRANULOCYTE % (AUTO) 0.3 % (0.0-5.0); LYMPHOCYTES # (AUTO) 1.6 K/uL (0.60-3.4); MEAN CORPUSCULAR HEMOGLOBIN 32.4 pg (27.0-31.0); MEAN CORPUSCULAR HGB CONC 35.1 (31.8-35.4); MEAN CORPUSCULAR VOLUME 92.4 fl (80.0-94.0); MONOCYTES # (AUTO) 0.8 K/uL (0.4-2.0); MONOCYTES % (AUTO) 10.8 (0-10); NEUTROPHILS # (AUTO) 4.9 K/ul (2.0-6.9); NEUTROPHILS % (AUTO) 62.3 % (42.2-75.2); PLATELET COUNT 275 10^3/uL (140-440); RDW COEFFICIENT OF VARIATION 12.8 % (11.6-14.8); WHITE BLOOD COUNT 7.81 K/ul (4.2-10.2)
[2020-03-05 10:49] LABS: ALANINE AMINOTRANSFERASE 15.4 U/L (0-50); ALBUMIN 4.06 g/dL (3.5-5.0); ALKALINE PHOSPHATASE 76.7 U/L (56-119); ASPARTATE AMINO TRANSFERASE 26.1 U/L (17-59); BILIRUBIN,TOTAL 0.61 mg/dL (0.2-1.3); BLOOD UREA NITROGEN 30.2 mg/dL (9-20); CALCIUM 9.42 mg/dL (8.4-10.2); CHLORIDE 100.2 mmol/L (98-107); CREATININE 1.41 mg/dL (0.60-1.10); MAGNESIUM 2.03 mg/dL (1.6-2.3); POTASSIUM 5.81 mmol/L (3.5-5.1); SODIUM 133.6 mmol/L (134.5-145); TOTAL PROTEIN 7.17 g/dL (6.3-8.2)
[2020-03-05 10:57] LABS: PARTIAL THROMBOPLASTIN TIME 24.5 SEC (23.9-40.0); PROTHROMBIN TIME 9.6 SEC (9.3-11.0)
--- NOTE | 2020-03-05 11:04 | DI ---
EXAM: Chest two view, frontal and lateral views. HISTORY: Chest pain. COMPARISON: 11/07/2017. FINDINGS: CABG changes noted. Heart size normal. Atherosclerotic calcifications are present. Ther e is no vascular congestion. No consolidation, pleural effusion or pneumothorax identified. Multipl e old left-sided rib fractures again seen. Probable old left clavicular shaft fracture. Since the p rior study, findings are unchanged. IMPRESSION: No acute process.
[2020-03-05 11:20] LABS: TROPONIN I < 0.012 ng/ml (0.0000-0.120)
[2020-03-05] MEDS ORDERED: SODIUM CHLORIDE 1,000 ML IV STA (13:04)
[2020-03-05] MEDS ORDERED: LOVENOX SUBCUT STA (13:04)
--- NOTE | 2020-03-05 14:10 | CT ---
EXAM: CT Angiogram Chest. HISTORY: Chest pain. Elevated D-dimer. COMPARISON: Radiograph earlier the same day. TECHNIQUE: Multiple axial images of the chest were obtained following intravenous administration of 75 mL of Visipaque 320, low osmolar. Images were reformatted in the sagittal and coronal plane. 3-D and maximum intensity projection reformatted images were created on an independent workstation. FINDINGS: Post CABG changes noted. The heart size normal. Atherosclerotic calcifications present. Aorta normal in caliber. There is no pericardial effusion. Nonenlarged mediastinal and hilar lymph nodes are present. No pulmonary arterial filling defect is seen. Main pulmonary artery not enlarged. There is no right heart strain. There is mild to moderate emphysema noted throughout both lungs. No consolidation, p leural effusion or pneumothorax identified. There is mild diffuse bronchial thickening. Moderate sized hiatal hernia is present. Degenerative changes are present in the spine. Multiple old right-sided rib fractures noted. Old le ft clavicular fracture suggested on the collateral clerk film. IMPRESSION: 1. No pulmonary embolus. 2. Mild diffuse bronchial thickening which could be due to chronic airways inflammation or acute inf ectious process. 3. Mild to moderate emphysema.
[2020-03-05 14:47] VITALS: BMI 24.3
[2020-03-05] MEDS ORDERED: ATROPINE SULFATE PFS IVP PRN (14:53)
[2020-03-05] MEDS ORDERED: NITROSTAT SL PRN (14:53)
[2020-03-05] MEDS ORDERED: TYLENOL PO PRN (14:53)
[2020-03-05] MEDS: SODIUM CHLORIDE 1,000 ML IV SCH (15:02)
[2020-03-05] MEDS ORDERED: DECADRON IM ONE (15:17)
[2020-03-05] MEDS ORDERED: TORADOL IVP PRN (15:18)
[2020-03-05 16:16] LABS: BILIRUBIN,URINE Negative (NEGATIVE); CLARITY,URINE Clear (CLEAR); COLOR,URINE Yellow (YELLOW); GLUCOSE, URINE (UA) Negative (NEGATIVE); KETONES,URINE Negative (NEGATIVE); LEUKOCYTE ESTERASE ,URINE Negative (NEGATIVE); NITRITE,URINE Negative (NEGATIVE); PROTEIN,URINE Negative (NEGATIVE); URINE, BLOOD Negative (NEGATIVE); UROBILINOGEN,URINE 0.2 (0.2)
[2020-03-05] MEDS: PROTONIX PO SCH (16:24)
[2020-03-05] MEDS: PRAVACHOL PO SCH (16:36)
[2020-03-05] MEDS: SINGULAIR PO SCH (16:37)
[2020-03-05 21:11] LABS: TROPONIN I 0.012 ng/ml (0.0000-0.120)
[2020-03-05] MEDS: ZESTRIL PO SCH (21:52)
[2020-03-06 04:47] LABS: BASOPHILS % (AUTO) 0.3 % (0.0-3.0); EOSINOPHILS % (AUTO) 0.1 % (0.0-7.0); HEMATOCRIT 38.8 % (42.0-52.0); HEMOGLOBIN 13.4 g/dl (14.0-18.0); IMMATURE GRANULOCYTE % (AUTO) 0.1 % (0.0-5.0); LYMPHOCYTES # (AUTO) 0.8 K/uL (0.60-3.4); LYMPHOCYTES % (AUTO) 10.7 (10.0-50.0); MEAN CORPUSCULAR HEMOGLOBIN 32.4 pg (27.0-31.0); MEAN CORPUSCULAR HGB CONC 34.5 (31.8-35.4); MEAN CORPUSCULAR VOLUME 93.7 fl (80.0-94.0); MONOCYTES # (AUTO) 0.3 K/uL (0.4-2.0); MONOCYTES % (AUTO) 3.3 (0-10); NEUTROPHILS # (AUTO) 6.7 K/ul (2.0-6.9); NEUTROPHILS % (AUTO) 85.5 % (42.2-75.2); PLATELET COUNT 242 10^3/uL (140-440); RDW COEFFICIENT OF VARIATION 12.9 % (11.6-14.8); RED BLOOD COUNT 4.14 10^6/ul (4.70-6.10); WHITE BLOOD COUNT 7.88 K/ul (4.2-10.2)
[2020-03-06 04:59] LABS: ALANINE AMINOTRANSFERASE 13.7 U/L (0-50); ALKALINE PHOSPHATASE 66.8 U/L (56-119); ASPARTATE AMINO TRANSFERASE 26.7 U/L (17-59); BILIRUBIN,TOTAL 0.49 mg/dL (0.2-1.3); BLOOD UREA NITROGEN 31.2 mg/dL (9-20); CARBON DIOXIDE 21.3 mmol/L (22-30.0); CHLORIDE 105.4 mmol/L (98-107); CREATININE 1.26 mg/dL (0.60-1.10); GLUCOSE 116.1 mg/dL (74-106); POTASSIUM 5.96 mmol/L (3.5-5.1); SODIUM 133.4 mmol/L (134.5-145); TOTAL PROTEIN 6.31 g/dL (6.3-8.2)
[2020-03-06 05:11] LABS: TROPONIN I < 0.012 ng/ml (0.0000-0.120)
[2020-03-06] MEDS: PROTONIX PO SCH ×2 (06:05→16:46)
[2020-03-06] MEDS: SODIUM CHLORIDE 1,000 ML IV SCH ×3 (06:12→17:34)
[2020-03-06] MEDS: NORVASC PO SCH (08:14)
[2020-03-06] MEDS: ASPIRIN EC PO SCH (08:14)
[2020-03-06] MEDS: ZESTRIL PO SCH ×2 (08:14→20:15)
[2020-03-06] MEDS: ZIAC 5-6.25 MG PO SCH (08:14)
[2020-03-06] MEDS: LOVENOX SUBCUT SCH (08:15)
[2020-03-06] MEDS: DECADRON IM SCH (13:28)
[2020-03-06] MEDS: PRAVACHOL PO SCH (16:46)
[2020-03-06] MEDS: SINGULAIR PO SCH (16:46)
[2020-03-07] MEDS: SODIUM CHLORIDE 1,000 ML IV SCH ×2 (04:26→09:30)
[2020-03-07 05:50] LABS: BASOPHILS % (AUTO) 0.1 % (0.0-3.0); EOSINOPHILS % (AUTO) 0.1 % (0.0-7.0); HEMATOCRIT 37.1 % (42.0-52.0); HEMOGLOBIN 12.7 g/dl (14.0-18.0); IMMATURE GRANULOCYTE % (AUTO) 0.4 % (0.0-5.0); LYMPHOCYTES # (AUTO) 1.2 K/uL (0.60-3.4); LYMPHOCYTES % (AUTO) 10.8 (10.0-50.0); MEAN CORPUSCULAR HEMOGLOBIN 32.1 pg (27.0-31.0); MEAN CORPUSCULAR HGB CONC 34.2 (31.8-35.4); MEAN CORPUSCULAR VOLUME 93.7 fl (80.0-94.0); MONOCYTES # (AUTO) 0.6 K/uL (0.4-2.0); MONOCYTES % (AUTO) 5.2 (0-10); NEUTROPHILS # (AUTO) 9.5 K/ul (2.0-6.9); NEUTROPHILS % (AUTO) 83.4 % (42.2-75.2); PLATELET COUNT 244 10^3/uL (140-440); RDW COEFFICIENT OF VARIATION 13.1 % (11.6-14.8); RED BLOOD COUNT 3.96 10^6/ul (4.70-6.10); WHITE BLOOD COUNT 11.42 K/ul (4.2-10.2)
[2020-03-07 06:04] LABS: ALANINE AMINOTRANSFERASE 13.2 U/L (0-50); ALBUMIN 3.54 g/dL (3.5-5.0); ALKALINE PHOSPHATASE 55.5 U/L (56-119); ASPARTATE AMINO TRANSFERASE 29.5 U/L (17-59); BILIRUBIN,TOTAL 0.45 mg/dL (0.2-1.3); CALCIUM 8.57 mg/dL (8.4-10.2); CARBON DIOXIDE 23.3 mmol/L (22-30.0); CHLORIDE 105.9 mmol/L (98-107); CREATININE 1.18 mg/dL (0.60-1.10); GLUCOSE 107.8 mg/dL (74-106); POTASSIUM 4.81 mmol/L (3.5-5.1); SODIUM 134.3 mmol/L (134.5-145); TOTAL PROTEIN 6.37 g/dL (6.3-8.2)
[2020-03-07] MEDS: PROTONIX PO SCH ×2 (06:25→16:32)
[2020-03-07] MEDS: ZIAC 5-6.25 MG PO SCH (08:53)
[2020-03-07] MEDS: NORVASC PO SCH (08:53)
[2020-03-07] MEDS: ASPIRIN EC PO SCH (08:53)
[2020-03-07] MEDS: ZESTRIL PO SCH ×2 (08:53→21:00)
[2020-03-07] MEDS: DECADRON IM SCH (08:54)
[2020-03-07] MEDS: LOVENOX SUBCUT SCH (08:54)
[2020-03-07] MEDS: PRAVACHOL PO SCH (16:31)
[2020-03-07] MEDS: SINGULAIR PO SCH (16:31)
[2020-03-08 05:36] LABS: BASOPHILS % (AUTO) 0.1 % (0.0-3.0); EOSINOPHILS # (AUTO) 0.1 K/ul (0.0-0.7); EOSINOPHILS % (AUTO) 0.5 % (0.0-7.0); HEMATOCRIT 35.6 % (42.0-52.0); HEMOGLOBIN 12.5 g/dl (14.0-18.0); IMMATURE GRANULOCYTE % (AUTO) 0.4 % (0.0-5.0); LYMPHOCYTES # (AUTO) 1.6 K/uL (0.60-3.4); LYMPHOCYTES % (AUTO) 15.7 (10.0-50.0); MEAN CORPUSCULAR HGB CONC 35.1 (31.8-35.4); MEAN CORPUSCULAR VOLUME 93.9 fl (80.0-94.0); MONOCYTES # (AUTO) 0.7 K/uL (0.4-2.0); MONOCYTES % (AUTO) 7.3 (0-10); NEUTROPHILS # (AUTO) 7.5 K/ul (2.0-6.9); PLATELET COUNT 238 10^3/uL (140-440); RDW COEFFICIENT OF VARIATION 13.3 % (11.6-14.8); RED BLOOD COUNT 3.79 10^6/ul (4.70-6.10); WHITE BLOOD COUNT 9.89 K/ul (4.2-10.2)
[2020-03-08 05:38] VITALS: BP 155/66; TEMP 97
[2020-03-08] MEDS: PROTONIX PO SCH (05:58)
[2020-03-08 06:19] LABS: ALANINE AMINOTRANSFERASE 13.4 U/L (0-50); ALBUMIN 3.23 g/dL (3.5-5.0); ALKALINE PHOSPHATASE 51.9 U/L (56-119); ASPARTATE AMINO TRANSFERASE 21.2 U/L (17-59); BILIRUBIN,TOTAL 0.35 mg/dL (0.2-1.3); BLOOD UREA NITROGEN 25.1 mg/dL (9-20); CALCIUM 8.75 mg/dL (8.4-10.2); CARBON DIOXIDE 26.2 mmol/L (22-30.0); CHLORIDE 105.9 mmol/L (98-107); CREATININE 1.17 mg/dL (0.60-1.10); GLUCOSE 93.9 mg/dL (74-106); POTASSIUM 5.36 mmol/L (3.5-5.1); SODIUM 134.4 mmol/L (134.5-145); TOTAL PROTEIN 5.91 g/dL (6.3-8.2)
[2020-03-08] MEDS: ZESTRIL PO SCH (09:49)
[2020-03-08] MEDS: DECADRON IM SCH (09:49)
[2020-03-08] MEDS: ZIAC 5-6.25 MG PO SCH (09:49)
[2020-03-08] MEDS: ASPIRIN EC PO SCH (09:49)
[2020-03-08] MEDS: NORVASC PO SCH (09:50)
[2020-03-08] MEDS: LOVENOX SUBCUT SCH (09:50)
--- NOTE | 2020-03-08 13:22 | CM.DICTOOL ---
ADMISSION: 03/05/20 13:58 DISCHARGE: MARCH 08, 2020 DATE OF SERVICE: 03/08/20 FINAL DIAGNOSIS CHEST PAIN HYPERKALEMIA HISTORY: COVID HYPERTENSION RI CAD DYSLIPIDEMIA COPD OSTEOARTHRITIS BLADDER CANCER LEFT CLAVICULAR FRACTURE, OLD MULTIPLE RIGHT RIB FRACTURES, OLD CABG, 4 VESSEL CATARACT ECHOCARDIOGRAM COMPLETED 03/08/2020 LAST VITALS Temp Pulse Resp BP Pulse Ox 97.0 F L 50 L 18 155/66 H 100 03/08/20 05:36 03/08/20 05:36 03/08/20 05:36 03/08/20 05:36 03/08/20 05:36 TAKE THESE MEDICATIONS AT HOME Amlodipine Besylate (Amlodipine Besylate 5 Mg Tablet) 5 mg PO DAILY COUNTS INCLUDE 234 BEDS AT THE [facility] Last Admin: 03/08/20 09:50 Dose: 5 mg Documented by: Bisoprolol Fumarate/HCTZ (Bisoprolol Fumarate/Hctz 5/6.25 Mg Tab) 1 tab PO DAILY COUNTS INCLUDE 234 BEDS AT THE [facility] Last Admin: 03/08/20 09:49 Dose: 1 tab Documented by: Montelukast Sodium (Montelukast Sodium 10 Mg Tablet) 10 mg PO 1700 COUNTS INCLUDE 234 BEDS AT THE [facility] Last Admin: 03/07/20 16:31 Dose: 10 mg Documented by: Pravastatin Sodium (Pravastatin Sodium 40 Mg Tablet) 40 mg PO 1700 COUNTS INCLUDE 234 BEDS AT THE [facility] Last Admin: 03/07/20 16:31 Dose: 40 mg Documented by: LOSARTAN 50MG BID (NEW AND RX GIVEN) ALLERGIES No Known Allergies Allergy (Unverified 03/05/20 10:02) DISCONTINUED MEDICATION: LISINOPRIL 20 MG BID NEW PRESCRIPTIONS: LOSARTAN 50 MG BID SMOKING: NOT APPLICABLE DISEASE SPECIFIC EDUCATION: MEDICATION CHANGE APPOINTMENT LAB REVIEW: 03/08/20 04:40 03/08/20 04:40 03/08/20 04:40: Sodium 134.4 L, Potassium 5.36 H, Chloride 105.9, Carbon Dioxide 26.2, Anion Gap 7.66, BUN 25.1 H, Creatinine 1.17 H, Estimated GFR (MDRD) 60.00, BUN/Creatinine Ratio 21.45, Glucose 93.9, Calcium 8.75, Total Bilirubin 0.35, AST 21.2, ALT 13.4, Alkaline Phosphatase 51.9 L, Total Protein 5.91 L, Albumin 3.23 L, Globulin 2.68, Albumin/Globulin Ratio 1.20 03/08/20 04:40: WBC 9.89, RBC 3.79 L, Hgb 12.5 L, Hct 35.6 L, MCV 93.9, MCH 33.0 H, MCHC 35.1, RDW Coeff of Seym[place] 13.3, Plt Count 238, Immature Gran % (Auto) 0.4, Neut % (Auto) 76.0 H, Lymph % (Auto) 15.7, [place] % (Auto) 7.3, Eos % (Auto) 0.5, Baso % (Auto) 0.1, Neut # (Auto) 7.5 H, Lymph # (Auto) 1.6, [place] # (Auto) 0.7, Eos # (Auto) 0.1, Baso # (Auto) 0.0, Immature Gran # (Auto) 0.0 PLAN: DISCHARGE HOME DIET: RESUME TOLERATED ACTIVITY: GRADUALLY RESUME TOLERATED AN APPOINTMENT IS SCHEDULED WITH DR. REAL/DIANNE SALMON APRN/MONICA PERES APRN ON March AT 9 AM CODE STATUS: FULL CODE RESUME ALL HOME MEDICATIONS EXCEPT FOR LISINOPRIL MR. NARANJO IS ALERT AND ORIENTED X 4. HE OFFERS NO COMPLAINTS AND REPORTS HE FEELS GOOD. HE IS AGREEABLE TO PLANS FOR DISCHARGE HOME TODAY. HE IS INDPENDENT WITH ADL'S. MR. NARANJO IS AMBULATORY IN THE ROOM WITHOUT USE OF ASSISTIVE DEVICE OR STAFF ASSISTANCE. HE IS CONTINENT OF BLADDER AND BOWELL. HE FEEDS HIMSELF AND MEAL INTAKES ARE NOTED AT 100%. MR. NARANJO DENIES CHEST PAIN OR SHORTNESS OF BREATH. HYDRATION STATUS IS GOOD. SKIN IS INTACT AND FREE OF OPEN WOUNDS. MD DIANNE LYONS APRN
--- NOTE | 2020-03-08 13:58 | HP ---
DATE OF SERVICE: 03/05/20 - ADMIT NOTE SUBJECTIVE: The patient was hospitalized through the emergency room with complaint of having chest pain, pleuritic in type. The patient is status post Covid two weeks and has gone through it without much problem. REVIEW OF SYSTEMS: CONSTITUTIONAL: No night sweats. No fatigue, malaise, lethargy. No fever or chills. HEENT: Eyes: No visual changes. No eye pain. No eye discharge. ENT: No runny nose. No epistaxis. No sinus pain. No sore throat. No odynophagia. No congestion. RESPIRATORY: No cough, no congestion. No hemoptysis. No shortness of breath. CARDIOVASCULAR: No angina symptoms. No CHF symptoms. No atypical chest pain for CAD. No palpitations. No PND. No orthopnea. GASTROINTESTINAL: Appetite is normal. No abdominal pain. No nausea or vomiting. No diarrhea or constipation. No hematemesis. No hematochezia. GENITOURINARY: No urgency. No frequency. No dysuria. No hematuria. No obstructive symptoms. No discharge. No pain. No significant abnormal bleeding. MUSCULOSKELETAL: No musculoskeletal pain; no joint swelling. NEUROLOGICAL: No headache. No neck pain. No syncope. No seizures. No dizziness. PSYCHIATRIC: Not anxious. No depression. No suicidal thoughts. No homicidal thoughts. SKIN: No rash. No lesions. No wounds. ENDOCRINE: No unexplained weight loss. No weight gain. HEMATOLOGIC/LYMPHATIC: No anemia. No purpura. No petechiae. No prolonged or excessive bleeding. No palpable lymph nodes. PHYSICAL EXAMINATION: GENERAL: The patient is oriented to time, place and person. HEENT: Head normocephalic, atraumatic. Eyes: Extraocular muscles are intact. Pupils are equal, round and reactive to light and accommodation. Ears: No lesions. Nose appeared normal. Throat: No exudate or erythema. NECK: Supple. No JVD, no carotid bruit. No lymphadenopathy or thyromegaly. LUNGS: Decreased breath sounds. Percussion note normal. Chest symmetrical. HEART: S1, S2, no S3. No murmurs. No cyanosis or clubbing. No ascites. Pulses: Dorsalis pedis and posterior tibial pulses +1 to +2 bilaterally. ABDOMEN: Soft. Nontender. Bowel sounds active. No CVA tenderness. No mass felt. EXTREMITIES: No edema. Full range of motion of all extremities, equal. NEUROLOGIC: No focal deficit. Cranial nerves II through XII are grossly intact. No headache, no double vision or headache. SKIN: Not dry. Intact. Turgor - normal. LYMPHATIC: No palpable lymph nodes/no lymphedema. MUSCULOSKELETAL: Normal joints with no swelling. Muscle tone is normal. LABS: CT angiogram was done which did not reveal any pulmonary embolism. ASSESSMENT: 1. Chest pain, pleuritic in type. 2. The patient has continued to smoke. 3. Severe chronic lung disease, oxygen dependent. 4. Status post Covid 2 weeks. PLAN: 1. Toradol 30 mg IV q.6. 2. Dexamethadone 4 mg IM daily. 3. Routine telemetry orders. 4. Cardiac markers. 5. EKG - sinus rhythm, no acute changes. 6. Oximetry 95% on 2L. TIME SPENT: More than 30 minutes. Plan and coordination of the patient's care discussed in the presence of nurse. JALEN
--- NOTE | 2020-03-08 14:15 | PN ---
DATE OF SERVICE: 03/06/20 SUBJECTIVE: Vital signs today: Temperature 96.8, pulse 57, respiratory rate 19, blood pressure 145/70, pulse ox 98% on room air. LABS: Hemoglobin 13.4, hematocrit 38, WBC 7,800, normal differential. Creatinine 1.2, BUN 31, potassium 5.9. Of note: The patient is not on any potassium supplements, IV fluids. Already on Hydrochlorothiazide. Monitor CMP and will do it in the morning. Telemetry no rhythm problems. TIME SPENT: More than 30 minutes. Plan and coordination of the patient's care discussed in the presence of nurse. JALEN
--- NOTE | 2020-03-08 14:21 | PN ---
DATE OF SERVICE: 03/07/20 SUBJECTIVE: The patient was seen and examined this morning. The patient's condition is improving. She wants to go home. REVIEW OF SYSTEMS: CONSTITUTIONAL: No night sweats. No fatigue, malaise, lethargy. No fever or chills. HEENT: Eyes: No visual changes. No eye pain. No eye discharge. ENT: No runny nose. No epistaxis. No sinus pain. No sore throat. No odynophagia. No congestion. RESPIRATORY: No cough, no congestion. No hemoptysis. No shortness of breath. CARDIOVASCULAR: No angina symptoms. No CHF symptoms. No atypical chest pain for CAD. No palpitations. No PND. No orthopnea. GASTROINTESTINAL: No abdominal pain. No nausea or vomiting. No diarrhea or constipation. No hematemesis. No hematochezia. GENITOURINARY: No urgency. No frequency. No dysuria. No hematuria. No obstructive symptoms. No discharge. No pain. No significant abnormal bleeding. MUSCULOSKELETAL: No musculoskeletal pain; no joint swelling. NEUROLOGICAL: No headache. No neck pain. No syncope. No seizures. No dizziness. PSYCHIATRIC: Not anxious. No depression. No suicidal thoughts. No homicidal thoughts. SKIN: No rash. No lesions. No wounds. ENDOCRINE: No unexplained weight loss. No weight gain. HEMATOLOGIC/LYMPHATIC: No anemia. No purpura. No petechiae. No prolonged or excessive bleeding. No palpable lymph nodes. PHYSICAL EXAMINATION: VITAL SIGNS: Temperature 97.4, pulse 50, respiratory rate 16, blood pressure 140/57, pulse ox 95%. HEENT: Head normocephalic, atraumatic. Eyes: Extraocular muscles are intact. Pupils are equal, round and reactive to light and accommodation. Ears: No lesions. Nose appeared normal. Throat: No exudate or erythema. NECK: Supple. No JVD, no carotid bruit. No lymphadenopathy or thyromegaly. LUNGS: Decreased breath sounds but clear to auscultation. Percussion note normal. Chest symmetrical. HEART: S1, S2, no S3. No murmurs. No cyanosis or clubbing. No ascites. Pulses: Dorsalis pedis and posterior tibial pulses +1 to +2 bilaterally. ABDOMEN: Soft. Nontender. Bowel sounds active. No CVA tenderness. No mass felt. EXTREMITIES: No edema. Full range of motion of all extremities, equal. NEUROLOGIC: No focal deficit. Cranial nerves II through XII are grossly intact. No headache, no double vision or headache. SKIN: Not dry. Intact. Turgor - normal. LYMPHATIC: No palpable lymph nodes/no lymphedema. MUSCULOSKELETAL: Normal joints with no swelling. Muscle tone is normal. LABS: Hemoglobin 12.7, hematocrit 37, WBC 11,400, normal differential. Creatinine 1.1, BUN 28, potassium 4.8. ASSESSMENT: 1. Pleuritic type of chest pain seems to have subsided. 2. Status post Covid three weeks. 3. Severe chronic lung disease. 4. Dyslipidemia. 5. Hypertension. PLAN: 1. Continue medications as before. 2. Continue Dexamethasone. 3. Continue all the hypertensive medications including Pravachol. Condition has improved. Will do an echo in the morning and discharge the patient home. TIME SPENT: More than 30 minutes. Plan and coordination of the patient's care discussed in the presence of nurse. JALEN
--- NOTE | 2020-03-09 10:32 | HP ---
DATE OF SERVICE: 03/05/2020 REASON FOR HOSPITALIZATION: Chest pain HISTORY OF PRESENT ILLNESS: 79 year old white male hospitalized through the emergency room because he was having chest pain of several days duration and getting worse. The pain was more like a pleuritic type. The patient is status post COVID. He was COVID positive three weeks ago. PAST MEDICAL HISTORY/PAST SURGICAL HISTORY: History of syncope Bradyarrhythmias Coronary bypass surgery History of ND COPD with smoking C of the urinary bladder Clubbing Dyslipidemia Severe left hip osteoarthritis Severe calcific atherosclerosis, generalized Stable angina type of pain Noncompliant of diet, lifestyle and medications REVIEW OF SYSTEMS: CONSTITUTIONAL: No night sweats. Fatigue and weakness. No fever or chills. HEENT: Eyes: No visual changes. No eye pain. No eye discharge. ENT: No runny nose. No epistaxis. No sinus pain. No sore throat. No odynophagia. No ear pain. No congestion. RESPIRATORY: Mild cough, usual cough like he has which comes with chronic smoking, no congestion. No hemoptysis. Mild shortness of breath. CARDIOVASCULAR: No angina symptoms. No CHF symptoms. No atypical chest pain for CAD. No palpitations. No PND. No orthopnea. Chest pain pleuritic type center of the chest due to exertion. GASTROINTESTINAL: No abdominal pain. No nausea or vomiting. No diarrhea or constipation. No hematemesis. No hematochezia. Good appetite. GENITOURINARY: No urgency. No frequency. No dysuria. No hematuria. No obstructive symptoms. No discharge. No pain. No significant abnormal bleeding. MUSCULOSKELETAL: No musculoskeletal pain. No joint swelling. No arthritis. NEUROLOGICAL: No headache. No neck pain. No syncope. No seizures. No dizziness. PSYCHIATRIC: Not anxious. No depression. No suicidal thoughts. No homicidal thoughts. SKIN: No rash. No lesions. No wounds. ENDOCRINE: No unexplained weight loss. No weight gain. HEMATOLOGIC/LYMPHATIC: No anemia. No purpura. No petechiae. No prolonged or excessive bleeding. No palpable lymph nodes. PERSONAL/FAMILY/SOCIAL HISTORY: The patient is and lives with the . Smokes occasionally. He has smoked for a number of years. No alcohol abuse. Does all activity of daily living. Drives car. MEDICATIONS: Bisoprolol PROAIR HFA Amlodipine Lisinopril Singulair Pravastatin Aspirin Nitroglycerin ALLERGIES: None PHYSICAL EXAMINATION: GENERAL: The patient is oriented to time, place and person. VITAL SIGNS: Temperature 96.7, pulse 57, respiratory rate 18, blood pressure 148/63 and pulse ox 98% on room air. HEENT: Head normocephalic, atraumatic. Eyes: Extraocular muscles are intact. Pupils are equal, round and reactive to light and accommodation. Ears: No lesions. Nose appeared normal. Throat: No exudate or erythema. NECK: Supple. No JVD, no carotid bruit. No lymphadenopathy or thyromegaly. LUNGS: Decreased breath sounds bilaterally with mild wheeze. Good air entry. Clear to auscultation. Percussion note normal. Chest symmetrical. HEART: S1, S2, no S3. No murmur. No cyanosis or clubbing. No ascites. Pulses: Dorsalis pedis and posterior tibial pulses +1 to +2 bilaterally. ABDOMEN: Soft. Nontender. Bowel sounds active. No CVA tenderness. No mass felt. EXTREMITIES: No edema. Full range of motion of all extremities, equal. NEUROLOGIC: No focal deficit. Cranial nerves II through XII are grossly intact. No headache, no double vision or headache. SKIN: Not dry. Intact. Turgor - normal. LYMPHATIC: No palpable lymph nodes/no lymphedema. MUSCULOSKELETAL: Normal joints with no swelling. Muscle tone is normal. LABS: EKG sinus rhythm, Bradyarrhythmias first degree AV block, poor R wave progression. Hgb 14.6, hct 41, WBC 7,800 normal differential, creatinine 1.4, BUN 30, potassium 5.8. Liver profile CT angiogram negative for pulmonary embolism ASSESSMENT: 1. Chest pain seems to be pleuritic type 2. Chronic bronchitis 3. Status post COVID 4. Renal azotemia 5. Coronary bypass surgery with history of ND in 1997 6. COPD with chronic smoking 7. Hypertension 8. Dyslipidemia PLAN: 1. Toradol 30mg IV with steroids to rule out any ND or ischemia 2. Routine telemetry TIME SPENT: More than 70 minutes. MTDD
--- NOTE | 2020-03-09 10:35 | DS ---
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, 4 VESSEL CATARACT ECHOCARDIOGRAM COMPLETED 03/08/2020 LAST VITALS: Temp Pulse Resp BP Pulse Ox 97.0 F L 50 L 18 155/66 H 100 03/08/20 05:36 03/08/20 05:36 03/08/20 05:36 03/08/20 05:36 03/08/20 05:36 TAKE THESE MEDICATIONS AT HOME: Amlodipine Besylate (Amlodipine Besylate 5 Mg Tablet) 5 mg PO DAILY [facility] Last Admin: 03/08/20 09:50 Dose: 5 mg Documented by: Bisoprolol Fumarate/HCTZ (Bisoprolol Fumarate/Hctz 5/6.25 Mg Tab) 1 tab PO DAILY [facility] Last Admin: 03/08/20 09:49 Dose: 1 tab Documented by: Montelukast Sodium (Montelukast Sodium 10 Mg Tablet) 10 mg PO 1700 [facility] Last Admin: 03/07/20 16:31 Dose: 10 mg Documented by: Pravastatin Sodium (Pravastatin Sodium 40 Mg Tablet) 40 mg PO 1700 [facility] Last Admin: 03/07/20 16:31 Dose: 40 mg Documented by: LOSARTAN 50MG BID (NEW AND RX GIVEN) ALLERGIES: No Known Allergies Allergy (Unverified 03/05/20 10:02) DISCONTINUED MEDICATION: LISINOPRIL 20 MG BID NEW PRESCRIPTIONS: LOSARTAN 50 MG BID SMOKING: NOT APPLICABLE DISEASE SPECIFIC EDUCATION: MEDICATION CHANGE APPOINTMENT LAB REVIEW: 03/08/20 04:40 03/08/20 04:40 03/08/20 04:40: Sodium 134.4 L, Potassium 5.36 H, Chloride 105.9, Carbon Dioxide 26.2, Anion Gap 7.66, BUN 25.1 H, Creatinine 1.17 H, Estimated GFR (MDRD) 60.00, BUN/Creatinine Ratio 21.45, Glucose 93.9, Calcium 8.75, Total Bilirubin 0.35, AST 21.2, ALT 13.4, Alkaline Phosphatase 51.9 L, Total Protein 5.91 L, Albumin 3.23 L, Globulin 2.68, Albumin/Globulin Ratio 1.20 03/08/20 04:40: WBC 9.89, RBC 3.79 L, Hgb 12.5 L, Hct 35.6 L, MCV 93.9, MCH 33.0 H, MCHC 35.1, RDW Coeff of Seymour 13.3, Plt Count 238, Immature Gran % (Auto) 0.4, Neut % (Auto) 76.0 H, Lymph % (Auto) 15.7, Barren % (Auto) 7.3, Eos % (Auto) 0.5, Baso % (Auto) 0.1, Neut # (Auto) 7.5 H, Lymph # (Auto) 1.6, Barren # (Auto) 0.7, Eos # (Auto) 0.1, Baso # (Auto) 0.0, Immature Gran # (Auto) 0.0 DISCHARGE INSTRUCTIONS: DISCHARGE HOME. AN APPOINTMENT IS SCHEDULED WITH DR. REAL/DIANNE SALMON APRN/MONICA PERES APRN ON March AT 9 AM. CODE STATUS: FULL CODE. RESUME ALL HOME MEDICATIONS EXCEPT FOR LISINOPRIL. DIET: RESUME TOLERATED ACTIVITY: GRADUALLY RESUME TOLERATED HOSPITAL COURSE: 79 year old white male hospitalized with chest pain which was consistent with pleuritic type of pain. The patient had COVID three weeks ago. The patient's chest x-ray showed possibility of bronchitis, no pneumonia was noted. He was given antiinflammatory along with steroids. His condition improved. His CT angiogram was negative for pulmonary embolism. He was dehydration. IV fluids were given. The patient's creatinine was 1.1 with BUN of 25 at the time of discharge. His initial creatinine was 1.4. During the stay in the hospital he was given steroids and Toradol as mentioned above. Hyperkalemia on the day of discharge his potassium was 5.3. Strongly advised to cut down on banana, orange juice and potatoes. The patient is going to be taken off Lisinopril because of hyperkalemia. He was put on Losartan 50mg twice a day. Rest of the medications will be continued. TIME SPENT: More than 60 minutes. MTDD
--- NOTE | 2020-03-09 10:52 | PN ---
03/05/2020: Level 5 03/06/2020: Intermediate 03/07/2020: Intermediate 03/08/2020: D as in discharge. MTDD
--- NOTE | 2020-03-09 11:01 | PN ---
DATE OF SERVICE: 03/08/2020 DISCHARGE NOTE SUBJECTIVE: The patient is up and about doing well. He wants to go home. No chest pain, No PND and no orthopnea. REVIEW OF SYSTEMS: CONSTITUTIONAL: No night sweats. No fatigue, malaise, lethargy. No fever or chills. HEENT: Eyes: No visual changes. No eye pain. No eye discharge. ENT: No runny nose. No epistaxis. No sinus pain. No sore throat. No odynophagia. No congestion. RESPIRATORY: No cough, no congestion. No hemoptysis. No shortness of breath. CARDIOVASCULAR: No angina symptoms. No CHF symptoms. No atypical chest pain for CAD. No palpitations. No PND. No orthopnea. GASTROINTESTINAL: No abdominal pain. No nausea or vomiting. No diarrhea or constipation. No hematemesis. No hematochezia. GENITOURINARY: No urgency. No frequency. No dysuria. No hematuria. No obstructive symptoms. No discharge. No pain. No significant abnormal bleeding. MUSCULOSKELETAL: No musculoskeletal pain; no joint swelling. NEUROLOGICAL: No headache. No neck pain. No syncope. No seizures. No dizziness. PSYCHIATRIC: Not anxious. No depression. No suicidal thoughts. No homicidal thoughts. SKIN: No rash. No lesions. No wounds. ENDOCRINE: No unexplained weight loss. No weight gain. HEMATOLOGIC/LYMPHATIC: No anemia. No purpura. No petechiae. No prolonged or excessive bleeding. No palpable lymph nodes. PHYSICAL EXAMINATION: VITALS: Temperature 97, pulse 50, respiratory rate 18, blood pressure 155/66 and pulse ox 100%. HEENT: Head normocephalic, atraumatic. Eyes: Extraocular muscles are intact. Pupils are equal, round and reactive to light and accommodation. Ears: No lesions. Nose appeared normal. Throat: No exudate or erythema. NECK: Supple. No JVD, no carotid bruit. No lymphadenopathy or thyromegaly. LUNGS: Clear to auscultation. Percussion note normal. Chest symmetrical. HEART: S1, S2, no S3. No murmurs. No cyanosis or clubbing. No ascites. Pulses: Dorsalis pedis and posterior tibial pulses +1 to +2 bilaterally. ABDOMEN: Soft. Nontender. Bowel sounds active. No CVA tenderness. No mass felt. EXTREMITIES: No edema. Full range of motion of all extremities, equal. NEUROLOGIC: No focal deficit. Cranial nerves II through XII are grossly intact. No headache, no double vision or headache. SKIN: Not dry. Intact. Turgor - normal. LYMPHATIC: No palpable lymph nodes/no lymphedema. MUSCULOSKELETAL: Normal joints with no swelling. Muscle tone is normal. LABS: Hgb 12.5, hct 35, WBC 9,800 normal differential, creatinine 1.1, BUN 25, potassium 5.3. ASSESSMENT: 1. Chest pain, pleuritic pain as resolved 2. Hyperkalemia needs to be treated with the medication PLAN: 1. Diet discussed in detail 2. The patient is going to be seen on followup in 5-7 days CONDITION: Stable. TIME SPENT: More than 30 minutes. Plan and coordination of the patient's care discussed in the presence of nurse. JALEN
--- NOTE | 2020-03-10 08:48 | ECHO2D ---
Date of Exam: 03/08/2020 Ordering Physician: DR. REAL Room #: 110 Reason for Echo: CHEST PAIN, HISTORY OF CORONARY ARTERY BYPASS GRAFTS M-Mode Normal Adult Results LV Dimensions Normal Adult Results AoV Opening excursions >1.6 >1.6 LVEDD-base- 3.5-5.8 5.5 Ao root dimensions 2.0-3.7 3.5 LVESD-base- 3.1-4.6 L. Atrium dimensions 1.9-3.8 5.1 Post. Wall thickness 0.8-1.1 1.2 IV septum (thickness) 0.7-1.2 1.1 Post. Wall excursion 0.72-1.3 NORMAL Septal motion 0.6 Systolic motion R. Ventricular cavity 1.5-2.0 NORMAL LVEF 60% 50% Paradoxical septal wall motion NORMAL 2-D : HYPOKINETIC SEPTAL WALL, ENLARGED LEFT ATRIAL CAVITY, NORMAL VALVES, NO EFFUSION, NO THROMBUS COLOR FLOW: MILD MITRAL REGURGITATION M-MODE: MV: NORMAL AV: NORMAL TV: NORMAL PV: CHAMBER SIZE: ENLARGED LEFT ATRIAL CAVITY WALL MOTION: HYPOKINETIC SEPTUM PERICARDIUM: NORMAL INTERPRETATION: 1. HYPOKINETIC SEPTUM, EJECTION FRACTION 50% 2. ENLARGED LEFT ATRIAL CAVITY 3. MILD MITRAL REGURGITATION 4. NORMAL VALVES MTDD
== END 2020-03-08 13:55 | disposition home or self-care (01) ==
LOC: ED 09:58 → MEDSURG A 09:58
PROVIDERS: ADMIT Internal Medicine; ATTEND Internal Medicine
DX: M19.90 Unspecified osteoarthritis, unspecified site; I10 Essential (primary) hypertension; E78.5 Hyperlipidemia, unspecified; J44.1 Chronic obstructive pulmonary disease with (acute) exacerbation; R79.89 Other specified abnormal findings of blood chemistry